=== PATIENT | female | born 1995 | race Hispanic/Latino ===

== ENCOUNTER → 2018-09-16 | Emergency (ER) | payer OTHER ==
[~2018-09-16] VITALS: Ht 162.6 cm; Wt 68.0 kg
[~2018-09-16] MED LIST: HYDROMORPHONE 2MG/ML 2 MG/ML ML IV ONE
--- NOTE | 2018-09-16 05:40 | Diagnostic Imaging Report ---
EXAM: Obstetric Pelvic Ultrasound INDICATION: Pain in . Concern for ectopic . COMPARISON: None TECHNIQUE: Transabdominal and transvaginal evaluation of the pelvis was performed in the transverse and longitudinal planes. CLINICAL HISTORY: 23 year old A0; last menstrual period: 08/16/2018 FINDINGS: Uterus: Orientation: Normal Size: 6.5 x 4.0 x 5.4 cm, enlarged Mass: None Cervix: Normal Echogenic thickened endometrium suggesting decidual reaction. Gestational Sac: Not identified. Yolk sac: Not identified. Embryo/Fetus: None identified. Right ovary Size: 2.9 x 1.4 x 2.1 cm Mass/Cyst: None Left ovary Size: 3.9 x 2.2 x 3.3 cm Mass/Cyst: None Cul-de-sac: Small volume of simple free fluid in the posterior cul-de-sac. IMPRESSION: of unknown location. Positive urine or serum test and no IUP or ectopic on US. Recommend correlation with serial beta ECG levels, and informed, follow-up ultrasound in one week. classification: Viable: can potentially result in a liveborn baby Visualized embryo with FHT Nonviable: Findings diagnostic of failure Ectopic CRL >= 7 mm and no FHT MSD >= 25 mm and no embryo No FHT >= 2 weeks after US showed GS w/o YS No FHT >= 11 days after US showed GS w/ YS Intrauterine of uncertain viability: Intrauterine GS with no FHT and no definite findings of failure of unknown location: Positive urine or serum test and no IUP or ectopic on US ?@ Diagnostic Criteria for Nonviable Early in the First Trimester N Engl J Med 2013;369:1443-51. DOI: [id number] Signed by: Dr. Atilio Petty M.D. on 09/16/2018 5:37 AM
[2018-09-16 06:27] LABS: BASOPHILS % 0.4 % (0.0-1.0); EOSINOPHILS # (AUTO) 0.3 (0.0-0.4); EOSINOPHILS % 3.1 % (0.0-6.0); HEMATOCRIT 38.6 % (34.2-44.1); HEMOGLOBIN 13.5 g/dL (12.0-16.0); LYMPHOCYTES % 21.8 % (18.0-39.1); MEAN CORPUSCULAR HEMOGLOBIN 32.9 pg (28-32); MEAN CORPUSCULAR VOLUME 94.1 fL (81-99); MONOCYTES # (AUTO) 0.7 (0.2-0.8); MONOCYTES % 7.3 % (4.4-11.3); PLATELET COUNT 289 x10e3/uL (140-360); RED CELL DISTRIBUTION WIDTH 11.4 % (11.7-14.4)
[2018-09-16 06:49] LABS: ALANINE AMINOTRANSFERASE 14 IU/L (0-55); ALBUMIN 4.2 g/dL (3.5-5.0); ALBUMIN/GLOBULIN RATIO 1.4 (0.8-2.0); ALKALINE PHOSPHATASE 39 IU/L (40-150); ANION GAP 12.9 mmol/L (8-16); BLOOD UREA NITROGEN 12 mg/dL (7-26); BUN/CREATININE RATIO 14 (6-25); CALCIUM 8.9 mg/dL (8.4-10.2); CARBON DIOXIDE 23 mmol/L (22-29); CHLORIDE 106 mmol/L (98-107); CREATININE, SERUM 0.83 mg/dL (0.57-1.11); EST GLOMERULAR FILTRATION RATE > 60 ML/MIN (60-); GLUCOSE 121 mg/dL (74-118); POTASSIUM 3.9 mmol/L (3.5-5.1); SODIUM 138 mmol/L (136-145)
[2018-09-16 06:55] LABS: HCG,QUANTITATIVE 561.07 mIU/mL (0-10)
== END | disposition home or self-care (01) ==
LOC: ER 02:26
DX: R10.2 Pelvic and perineal pain (principal); O20.0 Threatened abortion
CPT/HCPCS: 36415; 76817; 80053; 84702; 85025